=== PATIENT | female | born 1985 | race Hispanic/Latino ===

== ENCOUNTER 2018-03-22 16:51 | Emergency (ER) | payer BC ==
[~2018-03-22] VITALS: Ht 154.9 cm; Wt 64.9 kg
[~2018-03-22 16:51] MED LIST: B/P MED; HORMONE; IRON; Z.0.CELEXA10 MG; Z.0.WELLBUTRIN SR150
--- OUTSIDE RECORDS SUMMARY | 2018-03-22 16:54 | XMS REPORT | Summary of Care ---
Author Author [facility] Organization [facility] Address Unknown Phone Unavailable Encounter HQ Matt(FIN) [id number] Date(s): 03/19/18 - 03/19/18 [facility] [address] [place] [address]- [phone] Encounter Diagnosis Viral enteritis (Discharge Diagnosis) - 03/19/18 Elevated liver enzymes (Discharge Diagnosis) - 03/19/18 Discharge Disposition: Home or Self Care Attending Physician: Nicki Calvillo MD Vital Signs Most recent to 1 2 oldest [Reference Range]: Height 154.94 cm (03/19/18 7:11 AM) Temperature Oral 98.0 DegF 98.4 DegF [96.4-99.1 DegF] (03/19/18 10:40 AM) (03/19/18 7:11 AM) Blood Pressure 118/70 mmHg 144/91 mmHg [90-140/60-90 mmHg] (03/19/18 10:40 AM) *HI* (03/19/18 7:11 AM) Respiratory Rate 18 BRMIN 18 BRMIN [14-20 BRMIN] (03/19/18 10:40 AM) (03/19/18 7:11 AM) Peripheral Pulse 85 bpm Rate [60-100 bpm] (03/19/18 7:11 AM) Weight 72.727 kg (03/19/18 7:11 AM) Body Mass Index 30.29 m2 (03/19/18 7:11 AM) Problem List No data available for this section Allergies, Adverse Reactions, Alerts Substance Reaction Severity Status penicillins Active Medications fentaNYL 25 microgram, Route: IVP, ONCE, Dosing Weight 72.727, kg, Priority: STAT, Start date: 03/19/18 7:33:00 CDT, Stop date: 03/19/18 7:33:00 CDT Start Date: 03/19/18 Stop Date: 03/19/18 Status: Completed ibuprofen 600 mg oral tablet 600 mg=1 tab, PO, Q8H, PRN pain, X 7 day, # 21 tab, 0 Refill(s) Start Date: 03/19/18 Stop Date: 03/26/18 Status: Ordered ondansetron 4 mg, Route: IVP, ONCE, Dosing Weight 72.727, kg, Priority: STAT, Start date: 7:33:00 CDT, Stop date: 03/19/18 7:33:00 CDT Start Date: 03/19/18 Stop Date: 03/19/18 Status: Discontinued potassium chloride 20 mEq oral tablet, extended release 40 mEq, 2 tab, Route: PO, Drug form: ERTAB, ONCE, Dosing Weight 72.727, kg, Priority: STAT, Start date: 03/19/18 10:25:00 CDT, Stop date: 03/19/18 10:25:00 CDT Start Date: 03/19/18 Stop Date: 03/19/18 Status: Completed Saline Flush 0.9% 10 mL, Route: IVP, Drug Form: INJ, Dosing Weight 72.727, kg, PRN, PRN Line Flush , Start date: 03/19/18 7:33:00 CDT, Duration: 30 day, Stop date: 04/18/18 7:32: 00 CDT Notes: Same as: BD Posiflush Sterile Start Date: 03/19/18 Stop Date: 03/19/18 Status: Discontinued Sodium Chloride 0.9% (Bolus) IV 1,000 mL, Infuse Over: 1 hr, Route: IV, ONCE, Priority: STAT, Dosing Weight 72.727 kg, Start date: 03/19/18 7:33:00 CDT, Stop date: 03/19/18 7:33:00 CDT Start Date: 03/19/18 Stop Date: 03/19/18 Status: Completed tramadol 50 mg oral tablet 50 mg=1 tab, PO, Q6H, PRN Pain, X 3 day, # 12 tab, 0 Refill(s) Start Date: 03/19/18 Stop Date: 03/22/18 Status: Ordered Zofran ODT 4 mg, Route: PO, Drug form: TABDIS, ONCE, Dosing Weight 72.727, kg, Priority: STAT, Start date: 03/19/18 7:39:00 CDT, Stop date: 03/19/18 7:39:00 CDT Start Date: 03/19/18 Stop Date: 03/19/18 Status: Completed Zofran ODT 4 mg oral tablet, disintegrating 4 mg=1 tab, PO, BID, PRN Nausea and Vomiting, Dissolve tab under tongue, # 10 tab, 0 Refill(s) Start Date: 03/19/18 Stop Date: 03/24/18 Status: Ordered Results ELECTROLYTES Most recent to 1 oldest [Reference Range]: Sodium Lvl [135-145 138 mEq/L mEq/L] (03/19/18 7:49 AM) Potassium Lvl 3.3 mEq/L [3.5-5.1 mEq/L] *LOW* (03/19/18 7:49 AM) Chloride Lvl [95-109 105 mEq/L mEq/L] (03/19/18 7:49 AM) CO2 [24-32 mEq/L] 28 mEq/L (03/19/18 7:49 AM) AGAP [10.0-20.0 8.3 mEq/L mEq/L] *LOW* (03/19/18 7:49 AM) CHEM PANEL Most recent to 1 oldest [Reference Range]: Creatinine Lvl 0.63 mg/dL [0.50-1.40 mg/dL] (03/19/18 7:49 AM) eGFR 118 mL/min/1.73m2 1 *NA* (03/19/18 7:49 AM) BUN [7-22 mg/dL] 12 mg/dL (03/19/18 7:49 AM) B/C Ratio [6-25] 19 (03/19/18 7:49 AM) Glucose Lvl [70-99 97 mg/dL mg/dL] (03/19/18 7:49 AM) Total Protein 7.8 g/dL [6.4-8.4 g/dL] (03/19/18 7:49 AM) Albumin Lvl [3.5-5.0 3.8 g/dL g/dL] (03/19/18 7:49 AM) Globulin [2.7-4.2 4.0 g/dL g/dL] (03/19/18 7:49 AM) A/G Ratio [0.7-1.6] 1.0 (03/19/18 7:49 AM) Calcium Lvl 8.7 mg/dL [8.5-10.5 mg/dL] (03/19/18 7:49 AM) ALT [0-65 unit/L] 174 unit/L *HI* (03/19/18 7:49 AM) AST [0-37 unit/L] 106 unit/L *HI* (03/19/18 7:49 AM) Alk Phos [39-136 263 unit/L unit/L] *HI* (03/19/18 7:49 AM) Bili Total [0.2-1.3 0.4 mg/dL mg/dL] (03/19/18 7:49 AM) Lipase Lvl [73-393 138 unit/L unit/L] (03/19/18 7:49 AM) 1Result Comment: The eGFR is calculated using the CKD-EPI formula. In most young , healthy individuals the eGFR will be >90 mL/min/1.73m2. The eGFR declines with age. An eGFR of 60-89 may be normal in some populations, particularly the elderly, for whom the CKD-EPI formula has not been extensively validated. Use of the eGFR is not recommended in the following populations: Individuals with unstable creatinine concentrations, including patients and those with serious co-morbid conditions. Patients with extremes in muscle mass or diet. The data above are obtained from the National Kidney Disease Education Program ( NKDEP) which additionally recommends that when the eGFR is used in patients with extremes of body mass index for purposes of drug dosing, the eGFR should be multiplied by the estimated BMI. URINE CHEM Most recent to 1 oldest [Reference Range]: U Preg [Negative] Negative (03/19/18 7:49 AM) URINE AND STOOL Most recent to 1 oldest [Reference Range]: UA Turbidity [Clear] Clear (03/19/18 7:49 AM) UA Color Ltyellow *NA* (03/19/18 7:49 AM) UA pH [5.0-8.0] 6.0 (03/19/18 7:49 AM) UA Spec Grav 1.012 [<=1.030] (03/19/18 7:49 AM) UA Glucose [Negative Negative mg/dL mg/dL] *NA* (03/19/18 7:49 AM) UA Blood [Negative] Negative (03/19/18 7:49 AM) UA Ketones [Negative Negative mg/dL mg/dL] *NA* (03/19/18 7:49 AM) UA Protein [Negative Negative mg/dL mg/dL] (03/19/18 7:49 AM) UA Urobilinogen <=1.0 mg/dL [0.1-1.0 mg/dL] *NA* (03/19/18 7:49 AM) UA Bili [Negative] Negative *NA* (03/19/18 7:49 AM) UA Leuk Est Negative [Negative] (03/19/18 7:49 AM) UA Nitrite Negative [Negative] (03/19/18 7:49 AM) UA WBC [0-5 /HPF] <1 /HPF (03/19/18 7:49 AM) UA RBC [0-2 /HPF] 1 /HPF (03/19/18 7:49 AM) UA Sq Epi [Few /LPF] Few /LPF *NA* (03/19/18 7:49 AM) UA Mucus [None Seen Few /LPF /LPF] *NA* (03/19/18 7:49 AM) HEMATOLOGY Most recent to 1 oldest [Reference Range]: WBC [3.7-10.4 K/CMM] 10.4 K/CMM (03/19/18 7:49 AM) RBC [4.20-5.40 4.55 M/CMM M/CMM] (03/19/18 7:49 AM) Hgb [12.0-16.0 g/dL] 11.3 g/dL *LOW* (03/19/18 7:49 AM) Hct [36.0-48.0 %] 34.4 % *LOW* (03/19/18 7:49 AM) MCV [80.0-98.0 fL] 75.5 fL *LOW* (03/19/18 7:49 AM) MCH [27.0-31.0 pg] 24.8 pg *LOW* (03/19/18 7:49 AM) MCHC [32.0-36.0 32.9 g/dL g/dL] (03/19/18 7:49 AM) RDW [11.5-14.5 %] 16.7 % *HI* (03/19/18 7:49 AM) MPV [7.4-10.4 fL] 8.7 fL (03/19/18 7:49 AM) Platelet [133-450 357 K/CMM K/CMM] (03/19/18 7:49 AM) Segs [45.0-75.0 %] 60.6 % (03/19/18 7:49 AM) Lymphocytes 29.1 % [20.0-40.0 %] (03/19/18 7:49 AM) Monocytes [2.0-12.0 8.6 % %] (03/19/18 7:49 AM) Eosinophils [0.0-4.0 0.6 % %] (03/19/18 7:49 AM) Basophils [0.0-1.0 1.1 % %] *HI* (03/19/18 7:49 AM) Segs-Bands # 6.3 K/CMM [1.5-8.1 K/CMM] (03/19/18 7:49 AM) Lymphocytes # 3.0 K/CMM [1.0-5.5 K/CMM] (03/19/18 7:49 AM) Monocytes # [0.0-0.8 0.9 K/CMM K/CMM] *HI* (03/19/18 7:49 AM) Eosinophils # 0.1 K/CMM [0.0-0.5 K/CMM] (03/19/18 7:49 AM) Basophils # [0.0-0.2 0.1 K/CMM K/CMM] (03/19/18 7:49 AM) Microcyte [None 1+ Seen] *ABN* (03/19/18 7:49 AM) Immunizations No data available for this section Procedures Procedure Date Related Diagnosis Body Site Status Cholecystectomy Completed Tubal ligation Completed Social History Social History Type Response Smoking Status Never smoker; Exposure to Tobacco Smoke None; Cigarette Smoking Last 365 Days No; Reg Smoking Cessation Counseling No entered on: 03/19/18 Assessment and Plan No data available for this section
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
[2018-03-22 17:57] LABS: BASOPHILS % 0.4 % (0.0-1.0); EOSINOPHILS # (AUTO) 0.1 (0.0-0.4); EOSINOPHILS % 0.8 % (0.0-6.0); HEMATOCRIT 32.2 % (34.2-44.1); LYMPHOCYTES # (AUTO) 2.1 (1.0-3.2); LYMPHOCYTES % 18.1 % (18.0-39.1); MEAN CORPUSCULAR HGB CONC 31.1 g/dL (31-35); MEAN CORPUSCULAR VOLUME 77.2 fL (81-99); MONOCYTES # (AUTO) 0.7 (0.2-0.8); MONOCYTES % 6.2 % (4.4-11.3); NEUTROPHILS # (AUTO) 8.4 (2.1-6.9); NEUTROPHILS % 73.9 % (38.7-80.0); PLATELET COUNT 380 x10e3/uL (140-360); RED BLOOD COUNT 4.17 x10e6/uL (3.6-5.1); RED CELL DISTRIBUTION WIDTH 15.3 % (11.7-14.4)
[2018-03-22 18:17] LABS: ALANINE AMINOTRANSFERASE 86 IU/L (0-55); ALBUMIN 3.9 g/dL (3.5-5.0); ALBUMIN/GLOBULIN RATIO 1.2 (0.8-2.0); ALKALINE PHOSPHATASE 165 IU/L (40-150); ANION GAP 12.4 mmol/L (8-16); BLOOD UREA NITROGEN 10 mg/dL (7-26); BUN/CREATININE RATIO 15 (6-25); CALCIUM 9.1 mg/dL (8.4-10.2); CARBON DIOXIDE 23 mmol/L (22-29); CHLORIDE 102 mmol/L (98-107); CREATININE, SERUM 0.65 mg/dL (0.57-1.11); EST GLOMERULAR FILTRATION RATE > 60 ML/MIN (60-); GLUCOSE 81 mg/dL (74-118); POTASSIUM 3.4 mmol/L (3.5-5.1); SODIUM 134 mmol/L (136-145)
--- NOTE | 2018-03-22 22:17 | Diagnostic Imaging Report ---
EXAM: US GALLBLADDER DATE: 03/22/2018 12:00 AM INDICATION: , COMPARISON: None TECHNIQUE: Transverse and longitudinal devries scale and color doppler sonographic images of the upper. FINDINGS: LIVER 16.9 cm in the right midclavicular line. Increased echogenicity, normal contour, no masses. GALLBLADDER Removed BILE DUCTS No intra nor extra-hepatic biliary dilation. Common bile duct measures 0.5 cm PANCREAS: Visualized portions are normal. RIGHT KIDNEY: 10.3 cm Echogenicity: Normal Collecting System: No hydronephrosis Stones: None Cyst/Mass: None VESSELS: Aorta: Visualized portions are within normal size limits Inferior Vena Cava: Visualized portions are normal Main Portal Vein: 1.0 cm, hepatopetal flow. FREE FLUID: None IMPRESSION: 1. Hepatic steatosis. 2. Cholecystectomy. Signed by: Dr Cari De La Rosa MD on 03/22/2018 10:13 PM
[2018-03-23] MEDS ORDERED: ONDANSETRON HCL 4 MG ORAL DISINTEGRATING TAB PO ONE (00:30)
[2018-03-23] MEDS ORDERED: MORPHINE SULFATE 4 MG/ML SYR IV PRN (00:30)
[2018-03-23] MEDS ORDERED: MORPHINE SULFATE 2 MG/ML SYR ONE (01:08)
--- NOTE | 2018-03-23 01:20 | Diagnostic Imaging Report ---
EXAM: CT ABDOMEN/PELVIS W DATE: 03/23/2018 12:00 AM INDICATION: Abdominal pain COMPARISON: None TECHNIQUE: The abdomen and pelvis were scanned using a multidetector helical scanner. Coronal and sagittal reformations were obtained. Routine protocol performed. IV Contrast: 100 ml Isovue 300/370 FINDINGS: LOWER THORAX: No consolidations LIVER: Hepatic steatosis. No masses. GALLBLADDER: Surgically absent SPLEEN: Unremarkable PANCREAS: Unremarkable ADRENALS: No nodules KIDNEYS: Symmetric perfusion. No enhancing masses. No hydronephrosis. GI TRACT: No wall thickening or evidence of obstruction. Normal appendix. VESSELS: Unremarkable PERITONEUM/RETROPERITONEUM: No free air or fluid LYMPH NODES: No lymphadenopathy REPRODUCTIVE ORGANS/BLADDER: Unremarkable SOFT TISSUES: Unremarkable BONES: No suspicious bone lesions. IMPRESSION: No acute abnormality. Signed by: Dr Cari De La Rosa MD on 03/23/2018 1:16 AM
[2018-03-23] MEDS ORDERED: IOPAMIDOL 370 MG/ML 200 ML INFUS..BTL INJ ONE (02:55)
[2018-03-23] MEDS ORDERED: SODIUM CHLORIDE 0.9% 50ML 50 ML ONE (02:55)
== END 2018-03-23 02:37 | disposition home or self-care (01) ==
LOC: ER 16:51
DX: R10.13 Epigastric pain (principal); I10 Essential (primary) hypertension; F32.9 Major depressive disorder, single episode, unspecified
CPT/HCPCS: 36415; 74177; 76705; 80053; 84702; 85025; 99284; J2270; Q9967